=== PATIENT | male | born 1955 | race Caucasian/White ===

== ENCOUNTER 2023-01-09 13:33 | Emergency (ER) | payer MEDICARE ==
--- OUTSIDE RECORDS SUMMARY | 2023-01-09 13:44 | XMS REPORT | Continuity of Care Document ---
:1955 Author Organization [facility] t Address [address] [facility] [address] [place] [id number] Care Team Providers Name Role Phone Abhishek Mcintyre Attending Clinician Unavailable Kaykay Attending Clinician Unavailable Kaykay Admitting Clinician Unavailable Payers Payer Name Policy Type Policy Number Effective Date Expiration Date S yuri [facility] [id number] [facility] [id number] 2022 (MEDICARE 00:00:00 [facility] HMO) Problems This patient has no known problems. Allergies, Adverse Reactions, Alerts This patient has no known allergies or adverse reactions. Medications This patient has no known medications. Procedures This patient has no known procedures. Encounters Start End Encounter Admission Attending Care Care Encounter Source Date/Time Date/Time Type Type Clinicians Facility Department ID 2022-12-[address] [facility] [id number] 2 Common 11:04:01 Abhishek [id number] [facility] 2022-11-[address] [facility] [id number] 2 Common 14:06:02 Abhishek [id number] [facility] 2022-09-17 2022-09-17 Outpatient FOG_Goytia_ AOSM AOSM [id number] Jessica 00:00:00 00:00:00 Mark [id number] [facility] 2022-09-17 2022-09-17 Outpatient FOG_Goytia_ AOSM AOSM [id number] Jessica 00:00:00 00:00:00 Mark [id number] [facility] 2022-05-20 2022-05-20 Outpatient [facility] DM [id number] [facility] 00[facility]00[facility]00 00[facility]00[facility]00 [id number] [facility] This patient has no known results.
--- NOTE | 2023-01-09 13:58 | EDPHYS ---
Physician Documentation [facility] Name: Paramjit Cline Age: 67 yrs Sex: Male : 1955 Arrival Date: 01/09/2023 Time: 13:33 Bed Waiting Private MD: ED Physician Tucker Freeman HPI: 01/09 15:43 This 67 yrs old Male presents to ER via Wheelchair with complaints of Back Pain. ms3 15:43 67-year-old male with past medical history of hypertension, chronic back pain, ms3 hyperlipidemia presents for right mid/low back pain that began 3 days prior to arrival while bending over. Patient denies radiation of his pain. Patient states his pain is currently 0/10 however moving causes the pain to go to a 10/10. Patient states sitting makes the pain better. Patient denies trauma, bowel/bladder incontinence, IV drug use, fevers, chills, abdominal pain, nausea, vomiting, numbness, weakness.. Historical: - Allergies: 14:06 No Known Allergies; jl7 - PMHx: 14:06 Hypertensive disorder; Chronic back pain; Hypercholesterolemia; jl7 - Immunization history:: Adult Immunizations unknown. - Social history:: Smoking status: Patient reports the use of cigarette tobacco products, smokes two packs cigarettes per day. ROS: 15:43 Constitutional: Negative for fever, and chills. Neck: Negative for injury, pain, and ms3 swelling, Cardiovascular: Negative for chest pain, and palpitations. Respiratory: Negative for shortness of breath, cough, wheezing, and pleuritic chest pain, Abdomen/GI: Negative for abdominal pain, nausea, vomiting, diarrhea, and constipation. 15:43 Back: Positive for pain with movement. 15:43 All other systems are negative. Exam: 15:43 Constitutional: This is a well developed, well nourished patient who is awake, alert, ms3 and in no acute distress. Head/Face: Normocephalic, atraumatic. Neck: Trachea midline, no cervical lymphadenopathy. Supple, full range of motion without nuchal rigidity, or vertebral point tenderness. No Meningismus. Chest/axilla: Normal chest wall appearance and motion. Nontender with no deformity. Cardiovascular: Regular rate and rhythm with a normal S1 and S2. No gallops, murmurs, or rubs. Normal PMI, no JVD. No pulse deficits. Respiratory: Lungs have equal breath sounds bilaterally, clear to auscultation and percussion. No rales, rhonchi or wheezes noted. No increased work of breathing, no retractions or nasal flaring. Abdomen/GI: Soft, non-tender, with normal bowel sounds. No distension or tympany. No guarding or rebound. No evidence of tenderness throughout. Back: No spinal tenderness. No costovertebral tenderness. Full range of motion. Skin: Warm, dry with normal turgor. Normal color with no rashes, no lesions, and no evidence of cellulitis. MS/ Extremity: Pulses equal, no cyanosis. Neurovascular intact. Full, normal range of motion. Vital Signs: 14:04 Pulse 94; Resp 15; Temp 97.9; Pulse Ox 96% ; Weight 127.01 kg; Height 6 ft. 0 in. ; jl7 Pain 0/10; 14:04 Body Mass Index 37.98 (127.01 kg, 182.88 cm) jl7 14:04 Pain Scale: Adult jl7 MDM: 13:58 Patient medically screened. ms3 15:43 Differential diagnosis: Muscle spasm vs Compression fracture vs Neoplasm. Data ms3 reviewed: vital signs, nurses notes, and as a result, I will discharge patient. Test considered but Not performed: X-ray: Discussed obtaining X-ray with patient and patient declines. Counseling: I had a detailed discussion with the patient and/or guardian regarding: the historical points, exam findings, and any diagnostic results supporting the discharge/admit diagnosis, the need for outpatient follow up, to return to the emergency department if symptoms worsen or persist or if there are any questions or concerns that arise at home. ED course: Discussed obtaining lumbar x-ray with patient and patient declines. Patient states he has pulled his back prior and this is similar to that. Discussed risks of neoplasm or compression fracture with patient. Patient declined x-ray. Patient given prescription for Flexeril. Patient to follow-up with his primary care physician in 2 to 3 days. Patient understands and agrees with plan. All questions were answered. Return precautions discussed include fevers, chills, weakness, numbness, bowel or bladder incontinence, worsening symptoms, or any other concerns. Administered Medications: No medications were administered Disposition Summary: 01/09/23 13:58 Discharge Ordered Location: Home ms3 Condition: Stable ms3 Diagnosis - Low back pain ms3 Followup: ms3 - With: Private Physician - When: 2 - 3 days - Reason: Recheck today's complaints Discharge Instructions: - Discharge Summary Sheet ms3 - Acute Back Pain, Adult ms3 - Chronic Back Pain ms3 Forms: - Medication Reconciliation Form ms3 - Thank You Letter ms3 - Antibiotic Education ms3 - Prescription Opioid Use ms3 - Patient Portal Instructions ms3 Prescriptions: - Cyclobenzaprine 5 mg Oral Tablet - take 1 tablet by ORAL route 3 times per day As needed; 20 tablet; Refills: 0, ms3 Product Selection Permitted Signatures: Arias Avalos RN RN jl7 Tucker Freeman DO DO ms3
--- NOTE | 2023-01-09 14:08 | ER ---
Nurse's Notes [facility] Name: Paramjit Cline Age: 67 yrs Sex: Male : 1955 Arrival Date: 01/09/2023 Time: 13:33 Bed Waiting Private MD: Diagnosis: Low back pain Presentation: 01/09 14:04 Chief complaint: Patient states: Pulled a muscle in back 4 days ago. Coronavirus jl7 screen: At this time, the client does not indicate any symptoms associated with coronavirus-19. Ebola Screen: No symptoms or risks identified at this time. Initial Sepsis Screen: Does the patient meet any 2 criteria? No. Patient's initial sepsis screen is negative. Does the patient have a suspected source of infection? No. Patient's initial sepsis screen is negative. Risk Assessment: Do you want to hurt yourself or someone else? Patient reports no desire to harm self or others. Onset of symptoms was January 06, 2023. 14:04 Method Of Arrival: Wheelchair jl7 14:04 Acuity: WILLIAM 4 jl7 Triage Assessment: 14:06 General: Appears in no apparent distress. uncomfortable, Behavior is calm, cooperative, jl7 appropriate for age. Pain: Complains of pain in back Pain currently is 0 out of 10 on a pain scale. at worst was 10 out of 10 on a pain scale. Musculoskeletal: Swelling absent. Historical: - Allergies: 14:06 No Known Allergies; jl7 - PMHx: 14:06 Hypertensive disorder; Chronic back pain; Hypercholesterolemia; jl7 - Immunization history:: Adult Immunizations unknown. - Social history:: Smoking status: Patient reports the use of cigarette tobacco products, smokes two packs cigarettes per day. Vital Signs: 14:04 Pulse 94; Resp 15; Temp 97.9; Pulse Ox 96% ; Weight 127.01 kg; Height 6 ft. 0 in. ; jl7 Pain 0/10; 14:04 Body Mass Index 37.98 (127.01 kg, 182.88 cm) jl7 14:04 Pain Scale: Adult jl7 ED Course: 13:36 Patient arrived in ED. ts1 13:47 Tucker Freeman DO is Attending Physician. ms3 14:04 Arias Avalos RN is Primary Nurse. jl7 14:06 Triage completed. jl7 14:06 Arm band placed on right wrist. jl7 14:07 Patient has correct armband on for positive identification. Provided Education on: jl7 medication usage. 14:07 No provider procedures requiring assistance completed. Patient did not have IV access jl7 during this emergency room visit. Administered Medications: No medications were administered Medication: 14:07 VIS not applicable for this client. jl7 Outcome: 13:58 Discharge ordered by . ms3 14:07 Discharged to home via wheelchair. jl7 14:07 Condition: stable 14:07 Discharge instructions given to patient, Instructed on discharge instructions, follow up and referral plans. medication usage, Demonstrated understanding of instructions, follow-up care, medications, Prescriptions given X 1. 14:08 Patient left the ED. jl7 Signatures: Arias Avalos RN RN jl7 Tucker Freeman DO DO ms3 Dorina Gil, MISHA PAS ts1
[2023-01-09 14:12] VITALS: TEMP 97.9; O2SAT 96
== END 2023-01-09 14:08 | disposition home or self-care (01) ==
LOC: ER 13:33
DX: M54.50 Low back pain, unspecified (principal)
CPT/HCPCS: 99283